=== PATIENT | male | born 1990 | race Caucasian/White ===

== ENCOUNTER 2020-02-04 18:02 | Emergency (ER) | payer OTHER ==
[~2020-02-04] VITALS: Ht 190 cm; Wt 101.0 kg
[~2020-02-04 18:02] MED LIST: AMOX-358 PO; GLUC-144 PO; [UNRECOGNIZED DRUG - CODE] IM
[2020-02-04 18:35] VITALS: BP 128/84
--- NOTE | 2020-02-04 18:41 | NUR ---
TO [facility] WITH KAREN
--- NOTE | 2020-02-04 18:42 | ED Upper Extremity ---
General Chief Complaint: Upper Extremity Stated Complaint: WC R ARM PAIN Nursing Triage Note: STATES AFTER A REPITIVE PULLING MOTION AT WORK HIS RIGHT ELBOW STARTED POPPING AND WORKING Nursing Sepsis Screen: No Definite Risk Source: patient Exam Limitations: no limitations History of Present Illness Date Seen by Provider: Feb 04, 2020 Time Seen by Provider: 18:42 Initial Comments to ER with reports of tenderness and popping sensation over the lateral aspect of the right elbow after doing repetitive pulling motions at work. He works at [email or web address]. Onset: just prior to arrival Severity: moderate Pain/Injury Location: right elbow Modifying Factors: Worse With Movement Allergies and Home Medications Allergies Coded Allergies: No Known Drug Allergies (Unverified , 07/06/15) Patient Home Medication List Home Medication List Reviewed: Yes Review of Systems Constitutional: see HPI EENTM: see HPI Respiratory: no symptoms reported Cardiovascular: no symptoms reported Musculoskeletal: see HPI Skin: no symptoms reported Psychiatric/Neurological: No Symptoms Reported Past Ygvfwve-Aidplo-Igwmaf Hx Patient Social History Alcohol Use: Denies Use Recreational Drug Use: No Smoking Status: Current Everyday Smoker Recent Foreign Travel: No Contact w/Someone Who Travel: No Recent Infectious Disease Expo: No Immunizations Up To Date Tetanus Booster (TDap): Less than 5yrs Past Medical History Surgeries: Yes (L KNEE for debridement of staph infection) Orthopedic Respiratory: No Cardiac: No (possible ) Neurological: No Reproductive Disorders: No Sexually Transmitted Disease: No HIV/AIDS: No Kidney Stones Gastrointestinal: No Musculoskeletal: Yes (lowe r back and knee pain) Chronic Back Pain Endocrine: No Tinnitis Hearing Impairment: Hard of Hearing Cancer: No Psychosocial: No Integumentary: No Blood Disorders: No Family Medical History Arthritis 19 FATHER (grandmother) Colon cancer 19 FATHER (uncle- pancretiatic) Hypercholesterolemia 19 FATHER Hypertension 19 FATHER Myocardial infarction 19 FATHER (grandmother) Seizure disorder 19 MOTHER Physical Exam Vital Signs Vital Signs - First Documented 02/04/20 18:35 Temp 37.0 Pulse 104 Resp 16 B/P (MAP) 128/84 (99) Pulse Ox 95 O2 Delivery Room Air Capillary Refill : Less Than 3 Seconds Height, Weight, BMI Height: 6'3.00" Weight: 211lbs. 2.0oz. 95.714703vw; 27.00 BMI Method:Stated General Appearance: WD/WN, no apparent distress Respiratory: no respiratory distress, no accessory muscle use Gastrointestinal: normal bowel sounds, non tender Back: normal inspection Shoulder: normal inspection, non-tender Elbow/Forearm: Right, pain, soft tissue tenderness Hand: normal inspection, non-tender Neurologic/Psychiatric: alert, normal mood/affect, oriented x 3 Skin: normal color, warm/dry Progress/Results/Core Measures Results/Orders My Orders Orders - KALANI MUNOZ APRN Elbow, Right, 3 Views (02/04/20 18:48) Vital Signs/I&O 02/04/20 18:35 Temp 37.0 Pulse 104 Resp 16 B/P (MAP) 128/84 (99) Pulse Ox 95 O2 Delivery Room Air Blood Pressure Mean: 99 Departure Impression Primary Impression: Lateral epicondylitis of right elbow Disposition: HOME, SELF-CARE Condition: Stable Departure-Patient Inst. Decision time for Depature: 18:53 Referrals: NO,LOCAL PHYSICIAN (PCP/Family) Primary Care Physician Patient Instructions: Lateral Epicondylitis Add. Discharge Instructions: No use of the right arm for one week. Take the anti-inflammatories as directed. All discharge instructions reviewed with patient and/or family. Voiced understanding. Scripts Diclofenac Sodium (Voltaren) 100 Gm Gel..gram. 25 GM TP TID, #1 TUBE Prov: KALANI MUNOZ APRN 02/04/20 KALANI MUNOZ APRN Feb 04, 2020 18:42
[2020-02-04] MEDS ORDERED: DICL100G18 TP (18:55)
--- NOTE | 2020-02-04 19:01 | NUR ---
REPORT GIVEN TO SUKHDEEP
--- NOTE | 2020-02-04 20:14 | Diagnostic Imaging Report ---
EXAM: Right elbow radiograph EXAM DATE: 02/04/2020 COMPARISON: None. HISTORY: Injury to the right elbow. TECHNIQUE: 3 views of the right elbow. FINDINGS: No acute fracture, dislocation, or destructive osseous process. Joint spaces are normal. Soft tissues are normal. IMPRESSION: No acute osseous abnormality in the right elbow. Dictated by: Dictated on workstation # [id number]
== END 2020-02-04 19:37 | disposition home or self-care (01) ==
LOC: EDUNIT# 18:02 → ER 18:05
DX: M77.11 Lateral epicondylitis, right elbow (principal); F17.200 Nicotine dependence, unspecified, uncomplicated; Z80.0 Family history of malignant neoplasm of digestive organs; X50.3XXA Overexertion from repetitive movements, initial encounter; Y92.59 Other trade areas as the place of occurrence of the external cause; Y99.0 Civilian activity done for income or pay
CPT/HCPCS: 73080

== ENCOUNTER 2021-08-31 14:03 | Emergency (ER) | payer OTHER ==
[~2021-08-31] VITALS: Ht 190.5 cm; Wt 101.6 kg
[~2021-08-31 14:03] MED LIST changes: +DICL100G18 TP
--- NOTE | 2021-08-31 14:31 | ED Chest Pain ---
General Chief Complaint: Chest Wall Stated Complaint: RUQ PAIN Source: patient History of Present Illness Date Seen by Provider: Aug 31, 2021 Time Seen by Provider: 14:25 Allergies and Home Medications Allergies Coded Allergies: No Known Drug Allergies (Unverified , 07/06/15) Patient Home Medication List Diclofenac Sodium (Voltaren) 100 Gm Gel..gram., 25 GM TP TID Prescribed by: KALANI MUNOZ on 02/04/20 185 Doxycycline Hyclate (Doxycycline Hyclate) 100 Mg Tablet, 100 MG PO BID Prescribed by: SHAWNA FITCH on 08/31/211714 Methylprednisolone (Medrol) 4 Mg Tab.ds.pk, 4 MG PO UD Prescribed by: SHAWNA FITCH on 08/31/211714 Past Qkxkhwg-Krvyjp-Qhlkmo Hx Patient Social History Tobacco Use?: Yes Tobacco type used: Cigarettes Smoking Status: Current Everyday Smoker Smokeless Tobacco Frequency: Current Everyday User Use of E-Cig and/or Vaping dev: No Substance use?: No Alcohol Use?: Yes Alcohol Frequency: Once in a while Pt feels they are or have been: No Immunizations Up To Date Tetanus Booster (TDap): Less than 5yrs Past Medical History Surgeries: Yes (L KNEE for debridement of staph infection) Orthopedic Respiratory: No Cardiac: No (possible ) Neurological: No Reproductive Disorders: No Sexually Transmitted Disease: No HIV/AIDS: No Kidney Stones Gastrointestinal: No Musculoskeletal: Yes (lowe r back and knee pain) Chronic Back Pain Endocrine: No Tinnitis Hearing Impairment: Hard of Hearing Cancer: No Psychosocial: No Integumentary: No Blood Disorders: No Family Medical History Arthritis 19 FATHER (grandmother) Colon cancer 19 FATHER (uncle- pancretiatic) Hypercholesterolemia 19 FATHER Hypertension 19 FATHER Myocardial infarction 19 FATHER (grandmother) Seizure disorder 19 MOTHER Physical Exam Vital Signs Vital Signs - First Documented 08/31/21 14:10 Temp 36.9 Pulse 80 Resp 16 B/P (MAP) 143/82 (102) Pulse Ox 97 O2 Delivery Room Air Capillary Refill : Height, Weight, BMI Height: 6'3.00" Weight: 211lbs. 2.0oz. 95.048522ly; 27.00 BMI Method:Stated Progress/Results/Core Measures Results/Orders Lab Results Laboratory Tests Test 08/31/21 15:39 Range/Units White Blood Count 12.8 H 4.3-11.0 10^3/uL Red Blood Count 5.22 4.30-5.52 10^6/uL Hemoglobin 16.4 13.3-17.7 g/dL Hematocrit 47 40-54 % Mean Corpuscular Volume 91 80-99 fL Mean Corpuscular Hemoglobin 31 25-34 pg Mean Corpuscular Hemoglobin Concent 35 32-36 g/dL Red Cell Distribution Width 13.1 10.0-14.5 % Platelet Count 166 130-400 10^3/uL Mean Platelet Volume 12.7 H 9.0-12.2 fL Immature Granulocyte % (Auto) 1 % Neutrophils (%) (Auto) 70 42-75 % Lymphocytes (%) (Auto) 20 12-44 % Monocytes (%) (Auto) 7 0-12 % Eosinophils (%) (Auto) 0 0-10 % Basophils (%) (Auto) 1 0-10 % Neutrophils # (Auto) 9.0 H 1.8-7.8 X 10^3 Lymphocytes # (Auto) 2.6 1.0-4.0 X 10^3 Monocytes # (Auto) 0.9 0.0-1.0 X 10^3 Eosinophils # (Auto) 0.1 0.0-0.3 10^3/uL Basophils # (Auto) 0.1 0.0-0.1 10^3/uL Immature Granulocyte # (Auto) 0.2 H 0.0-0.1 10^3/uL Sodium Level 140 135-145 MMOL/L Potassium Level 3.9 3.6-5.0 MMOL/L Chloride Level 106 98-107 MMOL/L Carbon Dioxide Level 24 21-32 MMOL/L Anion Gap 10 5-14 MMOL/L Blood Urea Nitrogen 12 7-18 MG/DL Creatinine 1.18 0.60-1.30 MG/DL Estimat Glomerular Filtration Rate 84 BUN/Creatinine Ratio 10 Glucose Level 84 70-105 MG/DL Calcium Level 9.2 8.5-10.1 MG/DL Corrected Calcium 8.9 8.5-10.1 MG/DL Total Bilirubin 0.5 0.1-1.0 MG/DL Aspartate Amino Transf (AST/SGOT) 25 5-34 U/L Alanine Aminotransferase (ALT/SGPT) 55 0-55 U/L Alkaline Phosphatase 66 40-136 U/L Total Protein 7.4 6.4-8.2 GM/DL Albumin 4.4 3.2-4.5 GM/DL My Orders Orders - SHAWNA FITCH DO Chest Pa/Lat (2 View) (08/31/21 14:31) Ribs, Right 2-3 Views (08/31/21 14:31) Ed Iv/Invasive Line Start (08/31/21 15:17) Monitor-Rhythm Ecg Trace Only (08/31/21 15:17) Cbc With Automated Diff (08/31/21 15:17) Comprehensive Metabolic Panel (08/31/21 15:17) Ketorolac Injection (Toradol Injection) (08/31/21 15:17) [facility] [place] Chest/Noang Abd-Pelv W (08/31/21 15:17) Iohexol Injection (Omnipaque 350 Mg/Ml 1 (08/31/21 16:30) Di Iv Start (Assessment) .IV start (08/31/21 16:18) Received Contrast (Hold Metformin- Contr (08/31/21 16:30) Sodium Chloride Flush (Catheter Flush Sy (08/31/21 16:30) Ns (Ivpb) (Sodium Chloride 0.9% Ivpb Bag (08/31/21 16:30) Rocephin 1gm/50 Ml Iv (1xdose) (08/31/21 17:30) Methylprednisolone Sod Succ (Solu-Medrol (08/31/21 17:30) Medications Given in ED Current Medications Medications Dose Ordered Sig/Karlie Route Start Time Stop Time Status Last Admin Dose Admin Iohexol 100 ml ONCE ONCE IV 08/31/21 16:30 08/31/21 16:34 DC 08/31/21 16:43 82 ML Sodium Chloride 10 ml NEEDED PRN IV 08/31/21 16:30 08/31/21 16:45 10 ML Sodium Chloride 100 ml ONCE ONCE IV 08/31/21 16:30 08/31/21 16:34 DC 08/31/21 16:44 80 ML Vital Signs/I&O 08/31/21 14:10 Temp 36.9 Pulse 80 Resp 16 B/P (MAP) 143/82 (102) Pulse Ox 97 O2 Delivery Room Air Departure Impression Primary Impression: Right-sided chest wall pain Additional Impression: Pneumonitis Disposition: 01 HOME, SELF-CARE Condition: Stable Departure-Patient Inst. Decision time for Depature: 17:14 Referrals: NO,LOCAL PHYSICIAN (PCP) Primary Care Physician Patient Instructions: Costochondritis, Pneumonitis (DC) Add. Discharge Instructions: INCREASE YOUR FLUID INTAKE FOLLOW UP WITH THE [facility] IN 3-4 DAYS FOR FURTHER CARE, RETURN TO ER IF SYMPTOMS WORSEN All discharge instructions reviewed with patient and/or family. Voiced understanding. Scripts Methylprednisolone (Medrol) 4 Mg Tab.ds.pk 4 MG PO UD for 6 Days, #21 PKG PER DOSE PACK INSTRUCTIONS Prov: SHAWNA FITCH DO 08/31/21 Doxycycline Hyclate (Doxycycline Hyclate) 100 Mg Tablet 100 MG PO BID, #20 TAB 0 Refills Prov: SHAWNA FITCH DO 08/31/21 Work/School Note: Work Release Form Date Seen in the Emergency Department: Aug 31, 2021 Restrictions: Need Release from Doctor SHAWNA FITCH DO Aug 31, 2021 14:31
--- NOTE | 2021-08-31 15:01 | Diagnostic Imaging Report ---
EXAMINATION: Chest, two views. HISTORY: Pain. COMPARISON: 07/06/2015. FINDINGS: Heart size and pulmonary vasculature are normal. The lungs are clear without consolidation, pleural effusion, or pneumothorax. The osseous structures are intact. IMPRESSION: 1. No acute radiographic abnormality in the chest. Dictated by: Dictated on workstation # [id number]
--- NOTE | 2021-08-31 15:11 | Diagnostic Imaging Report ---
INDICATION: Right-sided rib pain. TIME OF EXAM: 02:47 p.m. TECHNIQUE: Three views of the right ribs were obtained. No displaced rib fracture is identified. No definite parenchymal contusion, effusion or pneumothorax is seen. IMPRESSION: No displaced rib fracture is detected. Dictated by: Dictated on workstation # [id number]
[2021-08-31] MEDS ORDERED: KETOROLAC 30 MG/ML VIAL IVP STA (15:17)
[2021-08-31 15:50] LABS: BASOPHILS # (AUTO) 0.1 10^3/uL (0.0-0.1); BASOPHILS % (AUTO) 1 % (0-10); EOSINOPHILS # (AUTO) 0.1 10^3/uL (0.0-0.3); EOSINOPHILS % (AUTO) 0 % (0-10); HEMATOCRIT 47 % (40-54); HEMOGLOBIN 16.4 g/dL (13.3-17.7); LYMPHOCYTES # (AUTO) 2.6 X 10^3 (1.0-4.0); LYMPHOCYTES % (AUTO) 20 % (12-44); MEAN CORPUSCULAR HEMOGLOBIN 31 pg (25-34); MEAN CORPUSCULAR HGB CONC 35 g/dL (32-36); MEAN CORPUSCULAR VOLUME 91 fL (80-99); MEAN PLATELET VOLUME 12.7 fL (9.0-12.2); MONOCYTES # (AUTO) 0.9 X 10^3 (0.0-1.0); MONOCYTES % (AUTO) 7 % (0-12); NEUTROPHILS % (AUTO) 70 % (42-75); PLATELET COUNT 166 10^3/uL (130-400); WHITE BLOOD COUNT 12.8 10^3/uL (4.3-11.0)
[2021-08-31 15:57] LABS: ALBUMIN 4.4 GM/DL (3.2-4.5); POTASSIUM 3.9 MMOL/L (3.6-5.0)
[2021-08-31 15:58] LABS: CALCIUM 9.2 MG/DL (8.5-10.1)
[2021-08-31 16:00] LABS: TOTAL PROTEIN 7.4 GM/DL (6.4-8.2)
[2021-08-31 16:02] LABS: BILIRUBIN,TOTAL 0.5 MG/DL (0.1-1.0)
[2021-08-31 16:03] LABS: CREATININE SERUM 1.18 MG/DL (0.60-1.30)
[2021-08-31] MEDS ORDERED: NS 100 ML (IVPB) BAG IV ONE (16:30)
[2021-08-31] MEDS ORDERED: CATHETER FLUSH 10 ML SYR IV PRN (16:30)
[2021-08-31] MEDS ORDERED: HOLD METFORMIN - RECEIVED CONTRAST 20 ML VIAL IV SCH (16:30)
[2021-08-31] MEDS ORDERED: IOHEXOL 350 MG/ML 100 ML (OMNIPAQUE 350) VIAL IV ONE (16:30)
--- NOTE | 2021-08-31 17:06 | Diagnostic Imaging Report ---
INDICATION: Pain. EXAMINATION: CTA chest, abdomen and pelvis. TECHNIQUE: Thin axial sections through the chest, abdomen and pelvis are obtained following intravenous contrast bolus. Multiplanar MIP images were reconstructed and reviewed. All CT scans use one or more of the following dose optimizing techniques: Automated exposure control, MA and/or KvP adjustment based on patient size and exam type or iterative reconstruction. FINDINGS: CHEST: The thoracic aorta is patent, nonaneurysmal, and nonacute. There is no pulmonary arterial embolus or filling defect. No pleural or pericardial effusion. There has been resolution of a focal mass-like zone of consolidation in the right infrahilar right lower lobe present on the prior. Today, the exam shows some septal thickening and heterogeneous tsheqn-jevly-bdur density diffusely in the lungs suspicious for a component of edema or nonspecific pneumonitis. No evidence for neoplasm. No adenopathy. No acute chest wall pathology. No effusion. No pneumothorax. ABDOMEN AND PELVIS: The aorta and mesenteric vessels are patent, nonaneurysmal, and nonacute. There is no small or large bowel obstruction. Liver, spleen, adrenals, and pancreas are unremarkable. There is no gallstone. Kidneys are unobstructed and normal. There is no appendicitis or diverticulitis. There is no ascites, abscess, hematoma, or acute fluid collection. No abdominal wall pathology. No inflammatory process. IMPRESSION: CHEST: 1. Negative aorta. No PE. 2. Some pulmonary opacities may reflect mild interstitial edema or nonspecific pneumonitis. There is no evidence for mass or alveolar consolidation, and no acute pleural pathology. ABDOMEN AND PELVIS: No acute appearing abdominopelvic abnormality. Dictated by: Dictated on workstation # [id number]
[2021-08-31] MEDS ORDERED: METH4TAB PO (17:15)
[2021-08-31] MEDS ORDERED: DOXY100T2 PO (17:15)
[2021-08-31] MEDS ORDERED: cefTRIAXone 1 GM PRE-MIX 50 ML IV ONE (17:30)
[2021-08-31] MEDS ORDERED: methylPREDNISolone 125 MG (Solu-MEDROL) VIAL IVP ONE (17:30)
[2021-08-31 17:59] VITALS: BP 135/81
== END 2021-08-31 17:59 | disposition home or self-care (01) ==
LOC: EDUNIT# 14:03 → ER 14:05
DX: J18.9 Pneumonia, unspecified organism (principal)
CPT/HCPCS: 36415; 71046; 71100; 71275; 74177; 80053; 85025; 93041

== ENCOUNTER 2023-02-15 10:31 | Emergency (ER) | payer OTHER ==
[~2023-02-15] VITALS: Ht 190.5 cm; Wt 111.5 kg
[~2023-02-15 10:31] MED LIST changes: +DOXY100T2 PO; +METH4TAB PO
[2023-02-15] MEDS ORDERED: NS IV 1000 ML 1,000 ML IV STA (11:18)
--- NOTE | 2023-02-15 11:22 | ED General ---
General Chief Complaint: Cough/Cold/Flu Symptoms Stated Complaint: WEAKNESS | SOB | SORE THROAT Nursing Triage Note: PT AMB TO [facility] WITH CC OF COUGH, SORE THROAT, SOA, FEVER AND DIARRHEA X 1 WEEK. PT REPORTS RECENT SICKNESS IN HOME. NO RESP DISTRESS NOTED AT TIME OF TRIAGE. Source of Information: Patient Exam Limitations: No Limitations (RICH MONTAÑO) History of Present Illness Date Seen by Provider: Feb 15, 2023 Time Seen by Provider: 11:19 Initial Comments Patient is a 32-year-old male with a history of smoking who presents to ED for flulike symptoms. Symptoms started 1 week ago. Patient reports nasal congestion, chills, subjective fever, cough sore throat and shortness of breath. Symptoms started around 1 week ago. Reports some mild dry cough with intermittent shortness of breath. Patient states his throat hurts difficulty swallowing. He states he is able to eat and drink but reports pain. States he feels weak and fatigued. Has been drinking fluids but feels like he may be dehydrated. He states his urine feels dark. Denies of any pain with urination. Diffuse body pains. Patient has been taken Tylenol cold and flu. Patient has not followed up with anybody regarding his symptoms. History of smoking. Denies history of coronary artery disease, asthma. Denies any abdominal pain vomiting but does report some diarrhea. Nothing seems to improve his symptoms. Patient denies chest pain or abdominal pain. (RICH MONTAÑO) Allergies and Home Medications Allergies Coded Allergies: No Known Drug Allergies (Unverified , 07/06/15) Patient Home Medication List Home Medication List Reviewed: Yes (RICH MONTAÑO) Albuterol Sulfate (Ventolin Hfa) 1 Puff Puff, 2 PUFF INH Q4H Prescribed by: YO OSPINA on 02/15/23 1254 Diclofenac Sodium (Voltaren) 100 Gm Gel..gram., 25 GM TP TID Prescribed by: KALANI MUNOZ on 02/04/20 1855 Doxycycline Hyclate (Doxycycline Hyclate) 100 Mg Tablet, 100 MG PO BID Prescribed by: SHAWNA FITCH on 08/31/21 1715 Doxycycline Monohydrate (Doxycycline Monohydrate) 100 Mg Tablet, 100 MG PO BID Prescribed by: YO OSPINA on 02/15/23 1254 Ibuprofen (Ibuprofen) 600 Mg Tablet, 600 MG PO Q6H Prescribed by: YO OSPINA on 02/15/23 1302 Methylprednisolone (Medrol) 4 Mg Tab.ds.pk, 4 MG PO UD Prescribed by: SHAWNA FITCH on 08/31/21 1715 Review of Systems Review of Systems Constitutional: chills, fever, malaise, weakness EENTM: nose congestion, throat pain; No ear pain, No blurred vision, No double vision, No vision loss, No throat swelling Respiratory: cough; No dyspnea on exertion; short of breath Cardiovascular: No chest pain Gastrointestinal: No abdominal pain; diarrhea; No nausea, No vomiting Genitourinary: No decreased output, No discharge, No dysuria, No frequency Musculoskeletal: No back pain, No joint pain Skin: No change in color, No change in hair/nails (RICH MONTAÑO) All Other Systems Reviewed Negative Unless Noted: Yes (RICH MONTAÑO) Past Juqxpwb-Vmbfzd-Tmnqge Hx Patient Social History Tobacco Use?: Yes Tobacco type used: Cigarettes Smoking Status: Current Everyday Smoker Substance use?: No Alcohol Use?: No (RICH MONTAÑO) Immunizations Up To Date Tetanus Booster (TDap): Less than 5yrs (RICH MONTAÑO) Past Medical History Surgeries: Yes (L KNEE for debridement of staph infection; HERNIA REPAIR AGE 1) Abdominal, Orthopedic Respiratory: No Cardiac: No Neurological: No Reproductive Disorders: No Sexually Transmitted Disease: No HIV/AIDS: No Genitourinary: No Gastrointestinal: Yes (HERNIA REPAIR AGE 1) Abdominal Hernia Musculoskeletal: Yes (lowe r back and knee pain;MRSA KNEE--DEBRIDEMENT) Chronic Back Pain Endocrine: No HEENT: Yes Tinnitis Hearing Impairment: Hard of Hearing Cancer: No Psychosocial: No Integumentary: Yes (MRSA OF KNEE) Blood Disorders: No (RICH MONTAÑO) Family Medical History Arthritis 19 FATHER (grandmother) Colon cancer 19 FATHER (uncle- pancretiatic) Hypercholesterolemia 19 FATHER Hypertension 19 FATHER Myocardial infarction 19 FATHER (grandmother) Seizure disorder 19 MOTHER Physical Exam Vital Signs Vital Signs - First Documented 02/15/23 10:55 Temp 36.4 Pulse 73 Resp 16 B/P (MAP) 136/85 (102) Pulse Ox 98 O2 Delivery Room Air (GRAZYNA SUAREZ MD) Vital Signs Capillary Refill : Less Than 3 Seconds (RICH MONTAÑO) Height, Weight, BMI Height: 6'3.00" Weight: 211lbs. 2.0oz. 95.139742lz; 30.00 BMI Method:Stated General Appearance: No Apparent Distress, WD/WN Eyes: Bilateral Eye Normal Inspection, Bilateral Eye PERRL, Bilateral Eye EOMI HEENT: PERRL/EOMI, TMs Normal, Normal ENT Inspection, Pharynx Normal, Other (No stridor) Neck: Full Range of Motion, Normal Inspection, Non Tender, Supple Respiratory: Chest Non Tender, Lungs Clear, Normal Breath Sounds, No Accessory Muscle Use, No Respiratory Distress Cardiovascular: Regular Rate, Rhythm, No Edema, No Gallop, No JVD Gastrointestinal: Normal Bowel Sounds, No Organomegaly, No Pulsatile Mass, Non Tender Back: Normal Inspection, No CVA Tenderness Extremity: Normal Capillary Refill, Normal Inspection, Normal Range of Motion, Non Tender Neurologic/Psychiatric: Alert, Oriented x3, No Motor/Sensory Deficits, Normal Mood/Affect Skin: Normal Color, Warm/Dry (RICH MONTAÑO) Progress/Results/Core Measures Suspected Sepsis SIRS Temperature: Pulse: 73 Respiratory Rate: 16 Laboratory Tests 02/15/23 11:27: White Blood Count 9.7 Blood Pressure 136 /85 Mean: 102 Laboratory Tests 02/15/23 11:27: Creatinine 0.90, Platelet Count 175, Total Bilirubin 0.4 (RICH MONTAÑO) Results/Orders Lab Results Laboratory Tests Test 02/15/23 10:58 02/15/23 11:06 02/15/23 11:27 Range/Units Influenza Type A (RT-PCR) Not Detected Not Detecte Influenza Type B (RT-PCR) Not Detected Not Detecte SARS-CoV-2 RNA (RT-PCR) Not Detected Not Detecte Group A Streptococcus Screen Not Detected NotDetected White Blood Count 9.7 4.3-11.0 10^3/uL Red Blood Count 5.27 4.30-5.52 10^6/uL Hemoglobin 16.7 13.3-17.7 g/dL Hematocrit 48 40-54 % Mean Corpuscular Volume 91 80-99 fL Mean Corpuscular Hemoglobin 32 25-34 pg Mean Corpuscular Hemoglobin Concent 35 32-36 g/dL Red Cell Distribution Width 12.9 10.0-14.5 % Platelet Count 175 130-400 10^3/uL Mean Platelet Volume 12.5 H 9.0-12.2 fL Immature Granulocyte % (Auto) 1 % Neutrophils (%) (Auto) 67 42-75 % Lymphocytes (%) (Auto) 23 12-44 % Monocytes (%) (Auto) 8 0-12 % Eosinophils (%) (Auto) 1 0-10 % Basophils (%) (Auto) 1 0-10 % Neutrophils # (Auto) 6.5 1.8-7.8 10^3/uL Lymphocytes # (Auto) 2.2 1.0-4.0 10^3/uL Monocytes # (Auto) 0.8 0.0-1.0 10^3/uL Eosinophils # (Auto) 0.1 0.0-0.3 10^3/uL Basophils # (Auto) 0.1 0.0-0.1 10^3/uL Immature Granulocyte # (Auto) 0.1 0.0-0.1 10^3/uL Sodium Level 140 135-145 MMOL/L Potassium Level 3.9 3.6-5.0 MMOL/L Chloride Level 111 H 98-107 MMOL/L Carbon Dioxide Level 22 21-32 MMOL/L Anion Gap 7 5-14 MMOL/L Blood Urea Nitrogen 8 7-18 MG/DL Creatinine 0.90 0.60-1.30 MG/DL Estimat Glomerular Filtration Rate 116 BUN/Creatinine Ratio 9 Glucose Level 110 H 70-105 MG/DL Calcium Level 9.2 8.5-10.1 MG/DL Corrected Calcium 8.8 8.5-10.1 MG/DL Total Bilirubin 0.4 0.1-1.0 MG/DL Aspartate Amino Transf (AST/SGOT) 21 5-34 U/L Alanine Aminotransferase (ALT/SGPT) 64 H 0-55 U/L Alkaline Phosphatase 76 40-136 U/L Total Protein 7.4 6.4-8.2 GM/DL Albumin 4.5 3.2-4.5 GM/DL (GRAZYNA SUAREZ MD) Vital Signs/I&O 02/15/23 02/15/23 10:55 13:03 Temp 36.4 Pulse 73 77 Resp 16 16 B/P (MAP) 136/85 (102) 147/87 Pulse Ox 98 98 O2 Delivery Room Air Room Air (GRAZYNA SUAREZ MD) Vital Signs/I&O Capillary Refill : Less Than 3 Seconds (RICH MONTAÑO) Blood Pressure Mean: 102 Departure Communication (PCP) Patient presents ED with URI symptoms. Differential diagnosis viral syndrome, pneumonia, strep throat. On exam patient appears ill but nontoxic. Vital signs stable. He is not hypoxic or tachycardic or febrile. States he feels dehydrated. CBC, CMP, liter fluid, COVID influenza and strep was ordered. He reports difficulty swallowing difficulty eating. He is able to eat and drink. Tolerating secretions. No stridor or barky cough. Oropharynx with mild erythema without exudate. No uvula deviation. Strep a was negative. COVID influenza negative. CBC, CMP grossly unremarkable. Did receive a liter of fluid. Due to the cough shortness of breath chest x-ray was obtained which did not note any pneumonia. History of smoking. Denies of any known cardiac history. No specific chest pain. Clinically does not appear cardiac. Suspect this is bronchitis with upper respiratory infection. Due to length of symptoms will discharge with doxycycline, albuterol inhaler and ibuprofen for body aches and pains. Needs to follow-up with his PCP in 2 to 3 days for reevaluation. If any worsening symptoms return back to ED. Patient appears in no acute distress. (RICH MONTAÑO) Impression Primary Impression: Upper respiratory infection Disposition: 01 HOME, SELF-CARE Condition: Stable Departure-Patient Inst. Decision time for Depature: 12:53 (RICH MONTAÑO) Referrals: ZHENG BARAJAS DO (PCP/Family) Primary Care Physician Patient Instructions: Acute Bronchitis, Adult (DC) Add. Discharge Instructions: Take antibiotics as prescribed. Recommend staying hydrated. Alternate Tylenol and ibuprofen. Follow-up your PCP in 2 to 3 days for reevaluation. All discharge instructions reviewed with patient and/or family. Voiced understanding. Scripts Ibuprofen (Ibuprofen) 600 Mg Tablet 600 MG PO Q6H for PAIN, #20 TAB 0 Refills Prov: RICH MONTAÑO 02/15/23 Albuterol Sulfate (VENTOLIN HFA) 1 Puff Puff 2 PUFF INH Q4H, #1 EA 1 PUFF = 90 MCG Prov: RICH MONTAÑO 02/15/23 Doxycycline Monohydrate (Doxycycline Monohydrate) 100 Mg Tablet 100 MG PO BID for 7 Days, #14 TAB Prov: RICH MONTAÑO 02/15/23 Work/School Note: Work Release Form Date Seen in the Emergency Department: Feb 15, 2023 Return to Work: Feb 18, 2023 ATTENDING PHYSICIAN NOTE: I was physically present as attending physician in the emergency department during the care of this patient, but I was not directly involved in the decision making or delivery of care for this patient. (GRAZYNA SUAREZ MD) RICH MONTAÑO Feb 15, 2023 11:22 GRAZYNA SUAREZ MD Feb 15, 2023 21:25
[2023-02-15 11:42] LABS: BASOPHILS # (AUTO) 0.1 10^3/uL (0.0-0.1); BASOPHILS % (AUTO) 1 % (0-10); EOSINOPHILS # (AUTO) 0.1 10^3/uL (0.0-0.3); EOSINOPHILS % (AUTO) 1 % (0-10); HEMATOCRIT 48 % (40-54); HEMOGLOBIN 16.7 g/dL (13.3-17.7); LYMPHOCYTES # (AUTO) 2.2 10^3/uL (1.0-4.0); LYMPHOCYTES % (AUTO) 23 % (12-44); MEAN CORPUSCULAR HEMOGLOBIN 32 pg (25-34); MEAN CORPUSCULAR HGB CONC 35 g/dL (32-36); MEAN CORPUSCULAR VOLUME 91 fL (80-99); MEAN PLATELET VOLUME 12.5 fL (9.0-12.2); MONOCYTES # (AUTO) 0.8 10^3/uL (0.0-1.0); MONOCYTES % (AUTO) 8 % (0-12); NEUTROPHILS # (AUTO) 6.5 10^3/uL (1.8-7.8); NEUTROPHILS % (AUTO) 67 % (42-75); PLATELET COUNT 175 10^3/uL (130-400); WHITE BLOOD COUNT 9.7 10^3/uL (4.3-11.0)
[2023-02-15 12:00] LABS: ALBUMIN 4.5 GM/DL (3.2-4.5); BILIRUBIN,TOTAL 0.4 MG/DL (0.1-1.0); CALCIUM 9.2 MG/DL (8.5-10.1); CREATININE SERUM 0.9 MG/DL (0.60-1.30); POTASSIUM 3.9 MMOL/L (3.6-5.0); TOTAL PROTEIN 7.4 GM/DL (6.4-8.2)
[2023-02-15] MEDS ORDERED: DOXY100T31 PO (12:54)
[2023-02-15] MEDS ORDERED: RT-ALBUINH INH (12:54)
--- NOTE | 2023-02-15 12:57 | Diagnostic Imaging Report ---
INDICATION: cough COMPARISON: 08/31/2021 FINDINGS: Single frontal view of the chest demonstrates normal heart size and pulmonary vascularity. The lungs show minimal bibasilar atelectasis, but are otherwise clear. No large pleural effusion or pneumothorax is seen. The visualized osseous structures show no acute abnormalities. IMPRESSION: 1. No acute cardiopulmonary process. Dictated by: Dictated on workstation # [id number]
[2023-02-15] MEDS ORDERED: IBUP-1773 PO (13:02)
[2023-02-15 13:03] VITALS: BP 147/87
== END 2023-02-15 13:03 | disposition home or self-care (01) ==
LOC: EDUNIT# 10:31 → ER 10:34
DX: J06.9 Acute upper respiratory infection, unspecified (principal); F17.210 Nicotine dependence, cigarettes, uncomplicated
CPT/HCPCS: 36415; 71045; 80053; 85025; 87430; 87636